=== PATIENT | female | born 2000 | race Caucasian/White ===

== ENCOUNTER 2022-05-23 04:38 | Emergency (ER) | payer BC, SELFPAY ==
[2022-05-23 04:45] VITALS: BP 116/75; PULSE 63; RESP 12; O2SAT 99; BMI 30.2
--- NOTE | 2022-05-23 06:15 | ED_ITS ---
HPI - General Adult General Chief complaint: General Medical Stated complaint: lac on face Time Seen by Provider: 05/23/22 06:14 Source: patient Mode of arrival: ambulatory Limitations: no limitations History of Present Illness HPI narrative: 22-year-old female who presents the emergency department for evaluation of laceration to the left side of her face. She states the neighbor was cutting her hair with a sharp pair scissors and accidentally cut her left cheek. The injury occurred around 23:00 hours yesterday. Patient states that she went to [facility], waited 4 hours and then left to come to our facility for evaluation. The patient is not sure when her last tetanus shot was given but she does not want a tetanus shot at this time and she wants to check with her PCP and get a shot if needed. Patient denies any other injuries. Onset (ago): hour(s) (9) Location: face Radiation: non-radiation Severity: mild Quality: aching Pain Consistency: constant Relieving factors: none Exacerbating factors: none Associated symptoms: denies other symptoms Treatments prior to arrival: none Related Data Allergies Allergy/AdvReac Type Severity Reaction Status Date / Time No Known Allergies Allergy Verified 05/23/22 06:41 Review of Systems Review of Systems: Yes all other systems are reviewed and are negative [facility] Past Medical History [facility] Narrative: Past medical history: Patient states she has psychiatric illnesses and had asthma as a child. Past surgical history: None. Social history: She denies tobacco, alcohol and drug use. Social History Social History Advance Directives: No Physical Exam ED Vital Signs: Vital Signs - 24 hr 05/23/22 04:45 05/23/22 06:50 Temperature 98.0 F Pulse Rate 63 64 Respiratory Rate 12 16 Blood Pressure 116/75 118/70 Pulse Oximetry 99 98 Oxygen Delivery Method Room Air Room Air BMI result Body Mass Index 30.2 Const Other: Awake, alert, female patient, very pleasant cooperative, does not appear to be in distress, answers all questions appropriately HENMT Other: Head is normal cephalic atraumatic, pupils were equal, sclera contact however normal, patient has a 3 cm full skin thickness laceration to her left cheek, it is not actively bleeding Resp Effort & Inspection: normal respiratory effort Psych Appearance: grossly normal Course Course Course Narrative: 22-year-old female who presents emergency department for evaluation of laceration to her left face. Patient did not know her last tetanus shot was given but she wants to check this with her PCP and get 1 as an outpatient. The patient's laceration was a full skin thickness and was repaired by me using Vicryl Rapide by 0.0 sutures x7 sutures. Wound was dressed with bacitracin and the patient was given printed and verbal instructions and discharged home. Procedures Procedure Narrative Procedure Narrative: 3.0 cm left facial laceration repair: The patient gave me informed verbal consent to proceed. The wound was prepped with bacitracin and explored, there is no foreign bodies found in the wound. The wound was then undermined using the surgical scissors. The wound was then closed in 1 layer using 5.0 Vicryl Rapide sutures x7 sutures. The patient tolerated the procedure well. The wound was then dressed with bacitracin and a dry sterile dressing by nursing staff. Discharge Plan Discharge Clinical Impression: Face lacerations Qualifiers: Encounter type: initial encounter Qualified Code(s): S01.81XA - Laceration without foreign body of other part of head, initial encounter Patient Disposition: Home, Self-Care Additional Instructions: You get 7 sutures on your face (Vicryl Rapide 5.0 sutures). These are dissolvable stitches that should dissolve a 7-10 days. If the stitches do not dissolve any to see your doctor to have the stitches removed. Apply bacitracin (antibiotic ointment) twice a day until the stitches are removed or fall out. After the stitches come out apply vitamin-E twice a day to the wound for 2 week s. Buy vitamin-E capsules, break break them open and rubbed liquid on the wound. Vitamin-D slows down healing and reduce scarring. Take ibuprofen 200 mg pills, 3 pills every 6 hours as needed for pain. Take Tylenol (acetaminophen) 500 mg pills, 2 pills every 4 to 6 hours as needed for pain. Follow-up with your doctor in 2 days. Please return to the emergency department if your symptoms get worse or if you develop any symptoms that are concerning to you. You need to check with her doctor to see if you have had a tetanus shot within 5 years. If your tetanus shot was given greater than 5 years ago then you need a tetanus diptheria and Pertussin vaccination that your doctor can give you or you can get any pharmacy.
[2022-05-23 06:50] VITALS: BP 118/70; PULSE 64; RESP 16; TEMP 36.7; O2SAT 98
[2022-05-23] MEDS: Lidocaine HCl 2% PF/Epi 1:200 20 ML VIAL INFILTRATI (07:19)
== END 2022-05-23 07:40 | disposition home or self-care (01) ==
PROVIDERS: Emergency Provider Emergency Medicine Emergency Medical Services
DX: S01.81XA Laceration without foreign body of other part of head, initial encounter (principal); W27.2XXA Contact with scissors, initial encounter; Y93.E8 Activity, other personal hygiene; Y92.9 Unspecified place or not applicable; Y99.9 Unspecified external cause status
CPT/HCPCS: 12052; 99283

== ENCOUNTER 2022-06-03 18:59 | Emergency (ER) | payer BC, SELFPAY ==
[2022-06-03 19:08] VITALS: BP 150/80; PULSE 88; RESP 18; TEMP 36.8; O2SAT 100; BMI 30.2
--- NOTE | 2022-06-03 21:51 | ED.ALLEREA ---
HPI - Allergic Reaction General Chief complaint: Allergic Reaction Stated complaint: allergic reaction Time Seen by Provider: 06/03/22 21:44 Source: patient Mode of arrival: ambulatory Limitations: no limitations History of Present Illness HPI narrative: Patient dyed her hair 2 days ago. few hours after the dye patient started noticed itching on the face specially at the hairline patient took 2 Benadryl is still having itching and redness spreading to the face no shortness of breath no throat pain Related Data Previous Rx's Medication Instructions Recorded prednisone 20 mg tablet 40 mg PO DAILY #10 tabs 06/03/22 Allergies Allergy/AdvReac Type Severity Reaction Status Date / Time Hair dye Allergy Itching Uncoded 06/03/22 19:14 Review of Systems Review of Systems: Yes all other systems are reviewed and are negative [facility] Social History Social History Advance Directives: No Advance Directives Information Provided: No Physical Exam ED Vital Signs: Vital Signs - 24 hr 06/03/22 22:07 Temperature 98.8 F Pulse Rate 78 Respiratory Rate 20 Blood Pressure 133/73 Pulse Oximetry 100 Oxygen Delivery Method Room Air BMI result Body Mass Index 30.2 Appearance: Alert. Oriented X3. No acute distress. Eyes: PERRLA, No Nystagmus ENT: Pharynx normal. Oral Mucosa moist Neck: Normal inspection. Neck supple. CVS: Normal heart rate and rhythm. Pulses normal. Respiratory: No respiratory distress. Equal air entry bilateral, no wheezing/rales/rhonchi Abdomen: Soft and nontender. Bowel sounds are present, no mass palpable, no CVA tenderness Skin: Skin warm and dry. Normal skin color. Normal skin turgor. Slight erythema and hives at the hairline Extremities: No lower extremity edema. No calf tenderness Neuro: Oriented X 3. No motor deficit. No sensory deficit.No cerebellar signs , cranial nerves II-XII intact MDM - Allergic Reaction MDM Narrative Medical decision making narrative: Patient likely with allergic reaction to ammonia containing dye will prescribe prednisone advised to continue Benadryl Discharge Plan Discharge Clinical Impression: Allergic reaction Patient Disposition: Home, Self-Care Instructions: General Allergic Reaction (ED) Additional Instructions: You have allergic reaction to dye containing ammonia Stop using hair dye Continue to take Benadryl 1-2 tablets every 6 hours Prednisone as advised Report to ER if not better Prescriptions: New prednisone 20 mg tablet 40 mg PO DAILY Qty: 10 0RF Interventions: ED Discharge Assessment Last Done: 06/03/22 22:37 Discharge Date/Time: 06/03/22 22:37
[2022-06-03 22:07] VITALS: BP 133/73; PULSE 78; RESP 20; TEMP 37.1; O2SAT 100
[2022-06-03] MEDS: predniSONE 20 MG TABLET 40 MG PO (22:35)
--- NOTE | 2022-06-03 22:36 | PC.NURSE ---
Pt medicated with Prednisone. Discharge instructions provided. Pt verbalizes understanding.
== END 2022-06-03 22:37 | disposition home or self-care (01) ==
PROVIDERS: Emergency Provider Internal Medicine
DX: L29.9 Pruritus, unspecified (principal); T49.4X5A Adverse effect of keratolytics, keratoplastics, and other hair treatment drugs and preparations, initial encounter; Y92.9 Unspecified place or not applicable
CPT/HCPCS: 99283